=== PATIENT | male | born 1965 | race Caucasian/White ===

== ENCOUNTER 2016-05-20 05:59 | Emergency (ER) | payer BC ==
[2016-05-20] MEDS ORDERED: DIAZEPAM 10 MG/2 ML SYR ONE (08:27)
[2016-05-20] MEDS ORDERED: DILAUDID 1 MG/ML AMP ONE ×2 (08:27→10:36)
== END 2016-05-20 13:41 | disposition home or self-care (01) ==
LOC: ER 05:59
CPT/HCPCS: 72146; 72148; 96372